=== PATIENT | male | born 1980 | race Caucasian/White ===

== ENCOUNTER 2017-06-18 14:05 | Emergency (ER) | payer OTHER ==
--- NOTE | 2017-06-18 14:33 | EDM.PDOC ---
ED HPI GENERAL MEDICAL PROBLEM - General Chief Complaint: Laceration Stated Complaint: CUT RT LEG Time Seen by Provider: 06/18/17 14:20 Source of Information: Reports: Patient History Limitations: Reports: No Limitations - History of Present Illness INITIAL COMMENTS - FREE TEXT/NARRATIVE: 37-year-old male with some varicosities on his lower extremities had a spontaneous bleeding of of superficial varicosity on the lateral right ankle. It is now stopped. Onset: Sudden Duration: Hour(s): (Within the past hour) Location: Reports: Lower Extremity, Right Severity: Mild - Related Data Allergies Allergy/AdvReac Type Severity Reaction Status Date / Time No Known Allergies Allergy Verified 06/18/17 14:35 ED ROS GENERAL - Review of Systems Review Of Systems: See Below Constitutional: Denies: Fever, Chills Respiratory: Denies: Shortness of Breath GI/Abdominal: Denies: Abdominal Pain, Nausea, Vomiting Skin: Denies: Bruising Neurological: Reports: No Symptoms ED EXAM, SKIN/RASH Exam: See Below Exam Limited By: No Limitations General Appearance: Alert, No Apparent Distress Respiratory/Chest: No Respiratory Distress Extremities: Other (Exam of the right lower extremity reveals some superficial varicosities, with a small clotted injured varicosity only a few millimeters wide. There is no active bleeding, no surrounding hematoma or bruising.) Course - Vital Signs Last Recorded V/S: Last Vital Signs Temp 97.2 F 06/18/17 14:25 Pulse 81 06/18/17 14:25 Resp 14 06/18/17 14:25 BP 149/93 H 06/18/17 14:25 Pulse Ox 97 06/18/17 14:25 - Orders/Labs/Meds Meds: Medications Discontinued Medications Generic Name Dose Route Start Last Admin Trade Name Freq PRN Reason Stop Dose Admin Bacitracin 1 dose 06/18/17 14:34 06/18/17 14:53 Bacitracin Oint 1 Gm TOP 06/18/17 14:35 1 dose ONETIME ONE Administration - Re-Assessments/Exams Free Text/Narrative Re-Assessment/Exam: 06/18/17 14:28 Topical dressing and pressure was applied. Patient can recheck this at the walk- in clinic tomorrow. Departure - Departure Time of Disposition: 14:55 Disposition: Home, Self-Care 01 Condition: Good Clinical Impression: Bleeding from varicose veins of right lower extremity - Discharge Information Instructions: Bleeding Varicose Veins Referrals: PCP,None [Primary Care Provider] - Forms: ED Department Discharge Care Plan Goals: Keep covered today, remove dressing tomorrow and reapply pressure bleeding continues or recurs. Consider rechecking with Dr. Galo at the clinic who is a vascular specialist if problems persist.
[2017-06-18] MEDS ORDERED: Bacitracin Oint 1 GM U/D Packet TOP ONE (14:34)
== END 2017-06-18 14:55 | disposition home or self-care (01) ==
LOC: JP.ED 14:05
DX: I83.91 Asymptomatic varicose veins of right lower extremity (principal)
CPT/HCPCS: 99283

== ENCOUNTER 2018-11-27 21:33 | Emergency (ER) | payer SELFPAY ==
[2018-11-27] MEDS ORDERED: Ketorolac 60 MG/2 ML SDV IM ONE (22:14)
--- NOTE | 2018-11-27 22:57 | EDM.PDOC ---
ED HPI GENERAL MEDICAL PROBLEM - General Chief Complaint: Genitourinary Problem Stated Complaint: INFECTION Time Seen by Provider: 11/27/18 22:00 Source of Information: Reports: Patient History Limitations: Reports: No Limitations - History of Present Illness INITIAL COMMENTS - FREE TEXT/NARRATIVE: 38-year-old male here with right testicular pain and swelling for the past 16 hours. He woke up with pain fairly suddenly early this morning and the pain is persisted all day and is worsening, becoming worse with movement. No fevers or chills. No significant dysuria. No recent trauma. Onset: Sudden (woke up with pain this morning at 6 AM) Duration: Hour(s): (pain is been ongoing for 16 hours) Severity: Moderate Associated Symptoms: Reports: No Other Symptoms - Related Data Allergies Allergy/AdvReac Type Severity Reaction Status Date / Time No Known Allergies Allergy Verified 11/27/18 21:48 Home Meds: Home Meds NK [No Known Home Meds] 11/27/18 [History] Past Medical History - Past Health History Medical/Surgical History: Denies Medical/Surgical History - Past Surgical History Other Musculoskeletal Surgeries/Procedures:: LUMBAR CRUSHED DISC Social & Family History - Tobacco Use Smoking Status *Q: Never Smoker ED ROS GENERAL - Review of Systems Review Of Systems: See Below Constitutional: Denies: Fever, Chills Respiratory: Denies: Shortness of Breath GI/Abdominal: Denies: Abdominal Pain, Nausea, Vomiting : Denies: Dysuria, Frequency Musculoskeletal: Reports: Back Pain (chronic back pain) Skin: Denies: Erythema Psychiatric: Reports: Anxiety ED EXAM, RENAL/ - Physical Exam Exam: See Below Exam Limited By: No Limitations General Appearance: Alert, Mild Distress (looks fairly uncomfortable, unable to sit down) Respiratory/Chest: No Respiratory Distress, Lungs Clear Cardiovascular: Regular Rate, Rhythm, Tachycardia (Male) Exam: Scrotal Swelling, Scrotum Tenderness (R), Testicular Tenderness (R). No: Hernia, Suprapubic Fullness, Testicular Mass Neurological: Alert, Oriented Psychiatric: Anxious Skin Exam: Warm, Dry Course - Vital Signs Last Recorded V/S: Last Vital Signs Temp 98.4 F 11/27/18 21:55 Pulse 130 H 11/27/18 21:55 Resp 18 11/27/18 21:55 BP 144/93 H 11/27/18 21:55 Pulse Ox 99 11/27/18 21:55 - Orders/Labs/Meds Meds: Medications Discontinued Medications Generic Name Dose Route Start Last Admin Trade Name Shantelle PRN Reason Stop Dose Admin Ketorolac Tromethamine 60 mg 11/27/18 22:14 11/27/18 22:18 Toradol IM 11/27/18 22:15 60 mg ONETIME ONE Administration - Re-Assessments/Exams Free Text/Narrative Re-Assessment/Exam: 11/27/18 22:56 An ultrasound was ordered to confirm vascular flow to the right testicle. 11/27/18 23:03 ultrasound confirmed good vascular flow, and some hypervascularity to the right epididymis. Patient will be treated for epididymitis with ciprofloxacin and given 10 hydrocodone for extra pain control for the first 48 hours. He should recheck in 3-4 days if not improving satisfactorily. Departure - Departure Time of Disposition: 23:10 Disposition: Home, Self-Care 01 Condition: Good Clinical Impression: Epididymitis - Discharge Information Instructions: Epididymitis Referrals: PCP,None [Primary Care Provider] - Forms: ED Department Discharge Care Plan Goals: Take antibiotic twice daily for at least 7 days starting tonight. Continue with ibuprofen and add stronger pain medication for the next 48 hours if needed as directed. Recheck in 3-4 days if not improving satisfactorily.
--- NOTE | 2018-11-28 00:16 | CRLUS ---
INDICATION: Severe right-sided scrotal pain for 1 day TECHNIQUE: Ultrasound of the scrotum and contents. Sonographic carrillo-scale images were obtained with spectral and color Doppler waveform and spectral waveform analysis of the testicles. COMPARISON: None FINDINGS: Right testicle: 4.4 x 2.5 x 3.6 cm. Normal echotexture. No masses. No suspicious calcifications. Normal arterial and venous and blood flow using Doppler and spectral waveform analysis. Left testicle: 4.7 x 2.5 x 3.0 cm. Normal echotexture. No masses. No suspicious calcifications. Normal arterial and venous and blood flow using Doppler and spectral waveform analysis. Epididymis: Increase blood flow in the right epididymis especially the tail. Two epididymal cysts measuring up to 1.2 cm in diameter. Other: No sign of hydrocele. There are bilateral varicoceles. Scrotal wall is normal. IMPRESSION: No testicular torsion or intratesticular mass. Increased blood flow within the right epididymis consistent with acute epididymitis. Bilateral varicoceles. Dictated by Charlotte Santiago MD @ Nov 28 2018 12:09AM Signed by Dr. Charlotte Santiago @ Nov 28 2018 12:15AM
--- NOTE | 2018-11-28 00:23 | CRLUS ---
INDICATION: Right scrotal pain TECHNIQUE: Ultrasound of the scrotum and contents. Sonographic carrillo-scale images were obtained with spectral and color Doppler waveform and spectral waveform analysis of the testicles. COMPARISON: None available FINDINGS: Right testicle: 4.4 x 2.5 x 3.6 cm. Normal echotexture. No masses. No suspicious calcifications. Normal arterial and venous blood flow using Doppler and spectral waveform analysis. Left testicle: 4.7 x 2.5 x 3.0 cm. Normal echotexture. No masses. No suspicious calcifications. Normal arterial and venous blood flow using Doppler and spectral waveform analysis. Epididymis: An enlarged heterogeneous right epididymal tail demonstrating irregular areas of mixed echogenicity and increased Doppler flow. Two adjacent cysts in the right epididymal head measuring up to 1.2 cm. Other: An apparent small left varicocele. Small right scrotal fluid, near physiologic limits. IMPRESSION: Enlarged, heterogeneous and hypervascular right epididymal tail suggestive of epididymitis. Correlate clinically and followup to document resolution. 2 right epididymal head cysts. Doppler flow documented in both testes. Dictated by Ross Velásquez MD @ 11/28/2018 12:20:54 AM Dictated by: Ross Velásquez MD @ 11/28/2018 00:21:00 (Electronically Signed)
== END 2018-11-27 23:11 | disposition home or self-care (01) ==
LOC: JP.ED 21:33
DX: N45.1 Epididymitis (principal)
CPT/HCPCS: 76870; 93976; 96372; 99284; J1885; 99283

== ENCOUNTER 2022-09-10 08:37 | Emergency (ER) | payer MEDICAID ==
[2022-09-10] MEDS ORDERED: Ketorolac 30 MG/ML SDV IM ONE (08:49)
[2022-09-10] MEDS ORDERED: Methocarbamol 500 MG Tab PO ONE (08:49)
[2022-09-10] MEDS ORDERED: Ketorolac 30 MG/ML SDV IVPUSH ONE (09:19)
[2022-09-10] MEDS ORDERED: HYDROmorphone 1 MG/ML Syringe IM ONE ×2 (09:46→11:39)
== END 2022-09-10 12:25 | disposition home or self-care (01) ==
LOC: JP.ED 08:37
DX: M54.50 Low back pain, unspecified (principal)
CPT/HCPCS: 96372; 96374; 99284; A9270; J1170; J1885; 99283

== ENCOUNTER 2023-08-15 17:02 | Emergency (ER) | payer SELFPAY ==
[2023-08-15 17:23] LABS: BASOPHILS ABSOLUTE AUTO 0.04 K/uL (0.00-0.10); BASOPHILS PERCENT AUTO 0.5 % (0.1-1.3); EOSINOPHILS ABSOLUTE AUTO 0.04 K/uL (0.00-0.40); EOSINOPHILS PERCENT AUTO 0.5 % (0.0-5.4); HEMATOCRIT 48.3 % (38.4-49.7); HEMOGLOBIN 16.2 g/dL (12.9-16.9); IMMATURE GRAN ABSOLUTE AUTO 0.03 K/uL (0.00-0.23); IMMATURE GRAN PERCENT AUTO 0.3 % (0.0-0.7); LYMPHOCYTES ABSOLUTE AUTO 5.06 K/uL (0.8-3.3); LYMPHOCYTES PERCENT AUTO 58.8 % (11.4-47.7); MEAN CORPUSCULAR HEMOGLOBIN 30.6 pg (31.6-35.5); MEAN CORPUSCULAR HGB CONC 33.5 g/dL (31.6-35.5); MEAN CORPUSCULAR VOLUME 91.3 fL (81.4-99.0); MONOCYTES ABSOLUTE AUTO 0.58 K/uL (0.20-0.90); MONOCYTES PERCENT AUTO 6.7 % (3.3-12.6); NEUTROPHILS ABSOLUTE AUTO 2.85 K/uL (1.0-7.6); NEUTROPHILS PERCENT AUTO 33.2 % (40.0-78.1); PLATELET COUNT,PLT 151 K/uL (130-375); RED BLOOD CELL COUNT 5.29 M/uL (4.14-5.76); WHITE BLOOD CELL COUNT,WBC 8.6 K/uL (3.2-11.0)
[2023-08-15 17:42] LABS: PROTHROMBIN TIME 10.4 sec (9.2-10.6); PTT,PARTIAL THROMBOPLSTIN TIME 24.7 sec (21.8-27.3)
[2023-08-15 17:43] LABS: A/G RATIO 0.8 (1.2-2.2); ALANINE AMINOTRANSFERASE,ALT 56 U/L (12-78); ALBUMIN 3.7 g/dL (3.4-5.0); ALKALINE PHOSPHATASE 93 U/L (46-116); ANION GAP 13.7 mmol/L (5.0-14.0); ASPARTATE AMNIOTRANSFERASE,AST 55 U/L (15-37); BILIRUBIN TOTAL 0.3 mg/dL (0.2-1.0); BLOOD UREA NITROGEN,BUN 14 mg/dL (7-18); CALCIUM 8.2 mg/dL (8.5-10.1); CARBON DIOXIDE,CO2 27 mmol/L (21-32); CHLORIDE,CL 104 mmol/L (100-108); CREATININE 0.9 mg/dL (0.8-1.3); ESTIMATED GFR 110 mL/min (>60); GLUCOSE RANDOM 107 mg/dL (74-106); POTASSIUM,K 3.6 mmol/L (3.6-5.2); PROTEIN TOTAL,TP 8.3 g/dL (6.4-8.2); SODIUM,NA 145 mmol/L (140-148)
[2023-08-15] MEDS: Sodium Chloride 0.9% 1,000 ML IV ONE (17:56)
[2023-08-15] MEDS: Diphtheria,Pertussis(Acell),Tetanus Vaccine 0.5 ML Syringe IM ONE (17:57)
[2023-08-15] MEDS: Lidocaine 1% with EPINEPHrine 1:100,000 50 ML MDV SUBCUT ONE (17:57)
[2023-08-15] MEDS: Bacitracin Oint 1 GM U/D Packet TOP ONE (17:57)
[2023-08-15] MEDS: Sodium Chloride 0.9% 10 ML Syringe FLUSH PRN (17:57)
[2023-08-15] MEDS ORDERED: Ondansetron 4 MG/2 ML SDV IVPUSH PRN (18:49)
[2023-08-15] MEDS: Folic Acid 1 MG Tab PO ONE (19:06)
[2023-08-15] MEDS: Thiamine 100 MG Tab PO ONE (19:06)
[2023-08-15] MEDS: Pantoprazole 40 MG Tab.CR PO ONE (19:06)
[2023-08-15] MEDS: Sodium Chloride 0.9% 500 ML IV ONE (19:06)
[2023-08-15] MEDS: Multivitamins with Iron/Calcium/Folic Acid/Minerals Tab PO ONE (19:06)
[2023-08-15] MEDS: Thiamine 100 MG Tab ONE (19:14)
[2023-08-15] MEDS ORDERED: MVI, Adult with Vitamin K 10 ML, Thiamine 100 MG, Folic Acid 1 MG, Magnesium Sulfate 3 ... IV SCH ×5 (19:45)
[2023-08-15] MEDS: 50% Dextrose in Water 50 ML Syringe IVPUSH ONE (19:59)
[2023-08-15] MEDS: Acetaminophen 325 MG Tab PO PRN (23:47)
[2023-08-16] MEDS: Acetaminophen 325 MG Tab PO ONE (06:00)
[2023-08-16] MEDS: Alum Hydrox/Mag Hydrox/Simeth 15 ML, Lidocaine 2% 15 ML PO ONE ×2 (06:00)
[2023-08-16] MEDS: Ketorolac 10 MG Tab PO ONE (06:01)
== END 2023-08-16 07:53 | disposition home or self-care (01) ==
LOC: JP.ED 17:02
DX: S01.81XA Laceration without foreign body of other part of head, initial encounter (principal); M54.50 Low back pain, unspecified; F10.920 Alcohol use, unspecified with intoxication, uncomplicated; E66.9 Obesity, unspecified; Z68.39 Body mass index [BMI] 39.0-39.9, adult; Z86.16 Personal history of COVID-19; W18.30XA Fall on same level, unspecified, initial encounter
CPT/HCPCS: 12013; 36415; 70450; 72125; 76377; 80053; 80307; 82140; 82947; 84484; 85025; 85610; 85730; 90471; 90715; 93005; 93010; 96361; 96374; 99284; 99285; A9270; J3490; J7030; J7040

== ENCOUNTER 2024-05-29 00:59 | Emergency (ER) | payer BC ==
[2024-05-29] MEDS: Dexamethasone 4 MG/ML SDV PO ONE (02:08)
== END 2024-05-29 02:09 | disposition home or self-care (01) ==
LOC: JP.ED 00:59
DX: J02.9 Acute pharyngitis, unspecified (principal); I10 Essential (primary) hypertension; E66.9 Obesity, unspecified; Z86.16 Personal history of COVID-19; Z79.899 Other long term (current) drug therapy
CPT/HCPCS: 87651-QW; 99283; J1100